=== PATIENT | male | born 1990 | race Caucasian/White ===

== ENCOUNTER 2023-02-24 14:44 | Emergency (ER) | payer MEDICAID ==
[~2023-02-24] VITALS: Ht 177.8 cm; Wt 79.5 kg
[2023-02-24] MEDS ORDERED: LORATADINE/PSEUDOEPHED SULF 5-120 MG SR TABLET PO ONE (16:45)
[2023-02-24 17:28] LABS: COVID AG,FIA SOURCE NASAL SWAB
[2023-02-24 18:03] LABS: INFLUENZA TYPE A NEGATIVE FOR TYPE A (NEGATIVE); INFLUENZA TYPE B NEGATIVE FOR TYPE B (NEGATIVE)
[2023-02-24 20:08] VITALS: BP 137/89
[2023-02-24] MEDS ORDERED: P-EP-24 PO (20:09)
== END 2023-02-24 20:05 | disposition home or self-care (01) ==
LOC: EMS 14:51
DX: J30.9 Allergic rhinitis, unspecified (principal); J30.2 Other seasonal allergic rhinitis; Z20.822 Contact with and (suspected) exposure to COVID-19
CPT/HCPCS: 87804; 99283